=== PATIENT | female | born 1950 | race Two or more races ===

== ENCOUNTER 2017-01-21 11:46 | Inpatient (IN) | payer MEDICARE ==
[~2017-01-21] VITALS: Ht 165.1 cm; Wt 60.3 kg
[2017-01-21 13:24] VITALS: BP 113/85
--- NOTE | 2017-01-21 13:24 | NUR ---
ADMISSION NOTES/ PATIENT DIRECT ADMIT, BROUGHT BY AMBULANCE 66 Y/OLD FEMALE ON 5150 HOLD, DX OF GD, PSYCHOSIS NOS. ACCORDING ON HOLD PATIENT DELUSIONAL, CONFUSED, TRIED TO ELOPE FROM ER, UNABLE TO CARE SELF, UNABLE TO CONTRACT SAFETY, INCONTINENT OF URINE, INSOMNIA. V/S TAKEN BP-113/85, P-85, R-19, O2-96 ROOM AIR, T-97.8. ON FACE TO FACE ASSESSMENT PATIENT A/O X TIME AND NAME. PATIENT RESPIRATION EVEN, UNLABORED, PATIENT DENIED SI/HI AT THIS TIME. SKIN ASSESSMENT DONE, PICTURE TAKEN, MRSA OF NARES SWAB TAKEN. PT AMBULATORY, BUT INCONTINENT OF URINE. PATIENT BELONGING AND CONTRABAND CHECKED. PATIENTS RIGHT HAND BOOK GIVEN, AND EXPLAINED TO. PATIENT FAMILY AWARE OF. DR CLEMENT, AND DR DOYLE AWARE OF NEW PATIENT, AND NEW MEDICATION. CONTINUED MONITORING.
[2017-01-21] MEDS ORDERED: MAGNESIUM HYDROXIDE 30 ML UDC PO PRN (15:00)
[2017-01-21] MEDS ORDERED: LORAZEPAM 0.5 MG TABLET PO PRN (15:00)
[2017-01-21] MEDS ORDERED: MAG HYDROX/AL HYDROX/SIMETH 30 ML UDC PO PRN (15:00)
[2017-01-21] MEDS ORDERED: ACETAMINOPHEN 325 MG TABLET PO PRN (15:00)
[2017-01-21] MEDS ORDERED: CEPH500T PO (15:32)
[2017-01-21] MEDS ORDERED: DULO60CA45 PO (15:32)
[2017-01-21] MEDS ORDERED: HYDR-3976 PO (15:32)
[2017-01-21] MEDS ORDERED: CARV6.252 PO (15:32)
[2017-01-21] MEDS ORDERED: METF500T4 PO (15:32)
[2017-01-21] MEDS ORDERED: CLOT15CR63 TP (15:32)
[2017-01-21] MEDS ORDERED: LOSA25TA13 PO (15:32)
--- NOTE | 2017-01-21 16:07 | NUR ---
GPS/RN CALLED [facility]/DR DOYLE FOR ADMITTING ORDERS.
[2017-01-21 16:15] VITALS: BP 103/66
[2017-01-21] MEDS ORDERED: Z GUARD REMEDY 2 OZ OINT TP PRN (17:30)
[2017-01-21 20:36] VITALS: BP 132/66
--- NOTE | 2017-01-22 00:54 | NUR ---
Pt has been confused, fragmented, hyperverbal at times, mentally preoccupied, guarded, & paranoid.
[2017-01-22 07:01] LABS: EOSINOPHILS # (AUTO) 0.1 /CMM (0.0-0.7); EOSINOPHILS % (AUTO) 1.2 % (0.0-6.0); HEMATOCRIT 35 % (33-45); HEMOGLOBIN 11.9 g/dL (11.5-14.8); LYMPHOCYTES # (AUTO) 2.4 /CMM (0.8-4.8); LYMPHOCYTES % (AUTO) 52.9 % (20.0-44.0); MEAN CORPUSCULAR HEMOGLOBIN 29 PG (26.0-33.0); MEAN CORPUSCULAR HGB CONC 34 g/dl (31.0-36.0); MEAN CORPUSCULAR VOLUME 87 fL (82-100); MONOCYTES # (AUTO) 0.5 /CMM (0.1-1.30); MONOCYTES % (AUTO) 12.1 % (2.0-12.0); NEUTROPHILS # (AUTO) 1.5 /CMM (1.8-8.9); NEUTROPHILS % (AUTO) 32.8 % (43.0-81.0); PLATELET COUNT (AUTO) 271 /CMM (150-450); RDW COEFFICIENT OF VARIATION 13.9 (11.5-15.0); RED BLOOD CELL COUNT(AUTO) 4.08 MIL/uL (4.0-5.2); WHITE BLOOD COUNT (AUTO) 4.5 K/uL (4.3-11.0)
[2017-01-22 07:19] LABS: ALBUMIN 3.1 g/dL (3.4-5.0); BILIRUBIN,TOTAL 0.5 mg/dL (0.2-1.0); CALCIUM, SERUM 8.5 mg/dL (8.5-10.1); CREATININE 0.8 mg/dL (0.6-1.3); POTASSIUM 3.9 mmol/L (3.5-5.1); TOTAL PROTEIN, SERUM 6.7 g/dL (6.4-8.2)
[2017-01-22 07:48] LABS: THYROID STIMULATING HORMONE 1.392 uIU/mL (0.358-3.74)
[2017-01-22 08:00] VITALS: BP 131/71
[2017-01-22] MEDS: METFORMIN 500 MG TABLET PO SCH (08:43)
[2017-01-22] MEDS: CARVEDILOL 6.25 MG TABLET PO SCH ×2 (08:43→16:52)
[2017-01-22] MEDS: LOSARTAN POTASSIUM 25 MG TABLET PO SCH (08:44)
[2017-01-22] MEDS: CLOTRIMAZOLE 1% 15 GM TUBE TP SCH ×2 (08:45→17:05)
[2017-01-22] MEDS: HYDROCODONE/APAP 5/325MG 1 EACH TABLET PO PRN (08:56)
--- NOTE | 2017-01-22 08:56 | NUR ---
[id number]: GAVE NORCO 5/325 MG PO DUE TO GENERALIZED PAIN 03/15 UPON PT REQUEST AND WILL CONTINUE TO MONITOR FOR EFFECTIVENESS OF MEDICATION
[2017-01-22 12:03] LABS: CHOLESTEROL 176 mg/dL (<200); HDL CHOLESTEROL 28 mg/dL (40-60); LDL 119 mg/dL (0-99); TRIGLYCERIDES 80 mg/dL (30-150)
--- NOTE | 2017-01-22 12:46 | NUR ---
[id number]: NOTIFIED DR. DOYLE ABOUT LAB VALUES ON 01/22/17: NEUT %= 32.8, LYMPH %= 52.9, MONO %= 12.1, NEUT#= 1.5, CHLORIDE= 109, ALBUMIN 3.1. NO NEW ORDERS GIVEN AT THIS TIME.
--- NOTE | 2017-01-22 13:24 | NUR ---
[id number]: NOTIFIED DR. DOYLE ABOUT PT HAVING KEFLEX 500 MG PO 4X DAILY FOR 7 DAYS PRIOR COMING TO THE HOSPITAL. ALSO DR. CLEMENT ORDERED URINALYSIS AND URINE CULTURE. PENDING RETURN PHONE CALL.
[2017-01-22 15:31] LABS: CREATININE 0.8 mg/dL (0.6-1.3)
[2017-01-22 16:00] VITALS: BP 96/77
[2017-01-22] MEDS: CEPHALEXIN MONOHYDRATE 250 MG CAPSULE PO SCH ×2 (16:52→20:52)
[2017-01-22] MEDS ORDERED: QUETIAPINE FUMARATE 25 MG TABLET PO PRN (17:00)
--- NOTE | 2017-01-22 20:57 | NUR ---
GPS/RN NOTE: PATIENT STATED THAT SHE IS READY FOR HER NIGHT MEDS. KEFLEX 500 MG PO AND SEROQUEL 12.5 MG GIVEN.
[2017-01-22] MEDS ORDERED: QUETIAPINE FUMARATE 25 MG TABLET PO SCH (22:00)
[2017-01-22 22:10] VITALS: BP 108/61
[2017-01-23 07:48] LABS: APPEARANCE,URINE CLEAR (CLEAR); BILIRUBIN,URINE NEGATIVE (NEGATIVE); BLOOD, URINE NEGATIVE Ery/uL (NEGATIVE); COLOR,URINE YELLOW (YELLOW); KETONES,URINE NEGATIVE (NEGATIVE); LEUKOCYTE ESTERASE ,URINE NEGATIVE (NEGATIVE); NITRITE, URINE NEGATIVE (NEGATIVE); PH,URINE 6.5 (5.0-8.0); PROTEIN,URINE NEGATIVE (NEGATIVE); UGLUCOSE NEGATIVE (NEGATIVE); UROBILINOGEN,URINE 0.2 EU/dL (0.2)
[2017-01-23 08:00] VITALS: BP 121/90
[2017-01-23] MEDS: LOSARTAN POTASSIUM 25 MG TABLET PO SCH (08:27)
[2017-01-23] MEDS: METFORMIN 500 MG TABLET PO SCH (08:27)
[2017-01-23] MEDS: CARVEDILOL 6.25 MG TABLET PO SCH ×2 (08:27→16:38)
[2017-01-23] MEDS: CLOTRIMAZOLE 1% 15 GM TUBE TP SCH ×2 (08:31→16:39)
[2017-01-23] MEDS: CEPHALEXIN MONOHYDRATE 250 MG CAPSULE PO SCH ×4 (08:47→21:32)
--- NOTE | 2017-01-23 11:32 | NUR ---
Initial Discharge Plan: Patient stated that she is homeless and stays somewhere in [place], [place]. Patient will need placement. health workers spoke to patient's son Orion Astorga ([phone]) and stated that unfortunately he is unable to do much as he lives in [place]. health workers attempted to contact her other son Aren ([phone]) however, he was unavailable, aids social worker left a voicemail with her contact information. health workers will help form a safe and proper discharge. health workers will also provide patient with substance abuse referrals upon discharge.
--- NOTE | 2017-01-23 14:52 | NUR ---
ash worker spoke to patient's son Aren Astorga ([phone]) who stated that patient has been homeless for over a year. Aren stated that his brother Orion Astorga ([phone]) would be willing to take her to live with him in [place]. Aren also stated that she could live in his apartment while he is gone on vacation. Aren stated that patient can be uncooperative and may refuse placement. social science teacher will follow-up with patient regarding placement.
[2017-01-23 16:00] VITALS: BP 105/68
[2017-01-23] MEDS: SERTRALINE HCL 25 MG TABLET PO SCH (17:24)
[2017-01-23 21:02] VITALS: BP 110/73
[2017-01-23] MEDS: QUETIAPINE FUMARATE 25 MG TABLET PO SCH (21:32)
[2017-01-24 07:59] VITALS: BP 122/64
[2017-01-24] MEDS: LOSARTAN POTASSIUM 25 MG TABLET PO SCH (08:13)
[2017-01-24] MEDS: SERTRALINE HCL 25 MG TABLET PO SCH (08:13)
[2017-01-24] MEDS: CARVEDILOL 6.25 MG TABLET PO SCH ×2 (08:13→16:55)
[2017-01-24] MEDS: METFORMIN 500 MG TABLET PO SCH (08:13)
[2017-01-24] MEDS: CLOTRIMAZOLE 1% 15 GM TUBE TP SCH ×2 (08:15→16:57)
[2017-01-24] MEDS: CEPHALEXIN MONOHYDRATE 250 MG CAPSULE PO SCH ×4 (08:29→20:41)
--- NOTE | 2017-01-24 10:50 | NUR ---
[id number]: NOTIFIED DR. MARINELLI AND DR. CLEMENT ABOUT CT OF THE HEAD RESULTS. NO NEW ORDERS GIVEN AT THIS TIME. DR. CLEMENT NOTIFIED DR. CONNELLY ABOUT CONSULTATION FOR PT.
--- NOTE | 2017-01-24 11:06 | NUR ---
[id number]: DR. MARINELLI ORDERED A PHYSICIAN CONSULT FOR DR. SMALLWOOD TO ASSESS LEFT HAND POSSIBLE ESCHAR.
--- NOTE | 2017-01-24 11:19 | NUR ---
WOUND CARE CONSULT: PT PRESENTS WITH LEFT HAND ESCHAR, PRESENT ON ADMISSION. PT STATES WAS A DOG BITE. NO DRAINAGE NOTED. PEELING SKIN NOTED AROUND ESCHAR. RECOMMEND SURGICAL CONSULT. RECOMMENDATIONS MADE FOR RASH CARE (GROIN AND BUTTOCKS RASH). DISCUSSED WITH NURSING STAFF. PT IS INDEPENDENT WITH MOBILITY, AMBULATORY AND CONTINENT. WILL SEE PRN. BETANCOURT IN AGREEMENT WITH PLAN OF CARE. Addendum: 01/24/17 at 1120 by TIFFANIE BREWER WNDNU Amended: Links added.
--- NOTE | 2017-01-24 12:07 | NUR ---
aboriginal education worker coordinator faxed initial review packet to [facility] ( / ) [address] [place] [address]. aboriginal education worker coordinator will follow-up.
--- NOTE | 2017-01-24 14:17 | NUR ---
[id number]: TODD VILLA ORDERED TRIPLE ANTIBIOTIC FOR LEFT FINGER AND LEAVE OPEN TO AIR. WILL CONTINUE TO MONITOR FOR ANY SIGNS AND SYMPTOMS OF INFECTION.
--- NOTE | 2017-01-24 14:47 | NUR ---
Patient was accepted to [facility] ( / ) [address] [place] [address]. food production worker will follow-up
[2017-01-24 16:06] VITALS: BP 101/65
[2017-01-24] MEDS: NEOMY SULF/BACITRAC ZN/POLY 15 GM TUBE TP SCH (16:57)
[2017-01-24 20:01] VITALS: BP 126/77
[2017-01-24] MEDS: QUETIAPINE FUMARATE 25 MG TABLET PO SCH (21:46)
[2017-01-25 08:00] VITALS: BP 122/70
[2017-01-25] MEDS: LOSARTAN POTASSIUM 25 MG TABLET PO SCH (08:19)
[2017-01-25] MEDS: METFORMIN 500 MG TABLET PO SCH (08:19)
[2017-01-25] MEDS: CARVEDILOL 6.25 MG TABLET PO SCH ×2 (08:20→16:29)
[2017-01-25] MEDS: SERTRALINE HCL 25 MG TABLET PO SCH (08:20)
[2017-01-25] MEDS: NEOMY SULF/BACITRAC ZN/POLY 15 GM TUBE TP SCH ×2 (08:23→16:38)
[2017-01-25] MEDS: CLOTRIMAZOLE 1% 15 GM TUBE TP SCH ×2 (08:23→16:38)
[2017-01-25 16:00] VITALS: BP 132/74
--- NOTE | 2017-01-25 19:00 | NUR ---
GPS RN INITIAL NOTE PT RECEIVED IN BED, NO S/S OF RESPIRATORY DISTRESS OR SOB. SAFE ENVIRONMENT PROVIDED FREE OF CLUTTERS. .BED IN LOCKED, LOW POSITION. CALL LIGHT WITHIN EASY REACH. WILL CONTINUE TO MONITOR.
[2017-01-25 20:00] VITALS: BP 111/70
[2017-01-25] MEDS: AMOX/CLAVULANATE 875 MG TABLET PO SCH (21:38)
[2017-01-25] MEDS: QUETIAPINE FUMARATE 25 MG TABLET PO SCH (21:39)
--- NOTE | 2017-01-26 06:22 | NUR ---
GPS RN CLOSING NOTES PATIENT COMFORTABLY ASLEEP AND EASILY AWAKEN, HEAD OF BED ELEVATED FOR BETTER LUNG EXPANSION TOLERATING ROOM AIR 02 SAT AT 97% ON ATB WITH NO A/R NOTED. NOT APPARENT DISTRESS. AFEBRILE, ALL NURSING CARE NEEDS PROVIDED AND RENDERED, NEEDS ATTENDED AND ANTICIPATED, KEPT CLEAN AND DRY AND COMFORTABLE, GOOD SKIN ARE PROVIDED. FREQUENT VISUAL CHECK DONE FOR SAFETY PER GPS PROTOCOL. SAFE HAZARD FREE ENVIRONMENT PROVIDED. CALL LIGHT WITHIN EASY TO REACH, ON LOW BED AT ALL TIMES TO ENSURE SAFETY, WILL ENDORSE TO THE NEXT SHIFT CONTINUE PLAN OF CARE.
[2017-01-26] MEDS: SERTRALINE HCL 25 MG TABLET PO SCH (09:22)
[2017-01-26] MEDS: LOSARTAN POTASSIUM 25 MG TABLET PO SCH (09:22)
[2017-01-26] MEDS: CARVEDILOL 6.25 MG TABLET PO SCH ×2 (09:22→16:19)
[2017-01-26] MEDS: NEOMY SULF/BACITRAC ZN/POLY 15 GM TUBE TP SCH ×2 (09:23→16:20)
[2017-01-26] MEDS: CLOTRIMAZOLE 1% 15 GM TUBE TP SCH ×2 (09:23→16:19)
[2017-01-26] MEDS: METFORMIN 500 MG TABLET PO SCH (09:23)
[2017-01-26] MEDS: AMOX/CLAVULANATE 875 MG TABLET PO SCH ×2 (10:05→21:29)
[2017-01-26 17:07] VITALS: BP 140/71
[2017-01-26 20:00] VITALS: BP 118/68
[2017-01-26] MEDS: QUETIAPINE FUMARATE 25 MG TABLET PO SCH (21:29)
[2017-01-27 08:00] VITALS: BP 124/76
[2017-01-27] MEDS: METFORMIN 500 MG TABLET PO SCH (08:46)
[2017-01-27] MEDS: LOSARTAN POTASSIUM 25 MG TABLET PO SCH (08:46)
[2017-01-27] MEDS: CARVEDILOL 6.25 MG TABLET PO SCH ×2 (08:46→17:00)
[2017-01-27] MEDS: SERTRALINE HCL 25 MG TABLET PO SCH (08:46)
[2017-01-27] MEDS: AMOX/CLAVULANATE 875 MG TABLET PO SCH ×2 (08:47→21:26)
[2017-01-27] MEDS: CLOTRIMAZOLE 1% 15 GM TUBE TP SCH ×2 (08:47→17:25)
[2017-01-27] MEDS: NEOMY SULF/BACITRAC ZN/POLY 15 GM TUBE TP SCH ×2 (08:47→17:25)
[2017-01-27 16:17] VITALS: BP_SYST 103; BP_SYST 138; BP_DIAS 66; BP_DIAS 79
[2017-01-27 20:00] VITALS: BP 112/70
[2017-01-27] MEDS: QUETIAPINE FUMARATE 25 MG TABLET PO SCH (21:26)
[2017-01-28 08:55] VITALS: BP 100/88
[2017-01-28] MEDS: LOSARTAN POTASSIUM 25 MG TABLET PO SCH (08:56)
[2017-01-28] MEDS: CARVEDILOL 6.25 MG TABLET PO SCH ×2 (08:56→17:19)
[2017-01-28] MEDS: SERTRALINE HCL 25 MG TABLET PO SCH (09:07)
[2017-01-28] MEDS: NEOMY SULF/BACITRAC ZN/POLY 15 GM TUBE TP SCH ×2 (09:07→17:19)
[2017-01-28] MEDS: METFORMIN 500 MG TABLET PO SCH (09:07)
[2017-01-28] MEDS: CLOTRIMAZOLE 1% 15 GM TUBE TP SCH ×2 (09:07→17:19)
[2017-01-28] MEDS: AMOX/CLAVULANATE 875 MG TABLET PO SCH ×2 (09:08→21:41)
[2017-01-28 16:02] VITALS: BP 129/83
[2017-01-28 21:24] VITALS: BP 122/76
[2017-01-28] MEDS: QUETIAPINE FUMARATE 25 MG TABLET PO SCH (21:41)
[2017-01-28] MEDS: HYDROCODONE/APAP 5/325MG 1 EACH TABLET PO PRN (21:45)
--- NOTE | 2017-01-29 06:26 | NUR ---
GPS RN NOTE: PATIENT REFUSED BODY CHECK AND PICTURES X 3 ATTEMPTS, EXPLAINED THAT THE PATIENT IS GOING TO BE DISCHARGE AND WE NEED A BODY CHECK AND PICTURE, PATIENT STILL REFUSED WITNESSED BY THE CHARGE NURSE.WILL CONTINUE TO MONITOR
[2017-01-29 08:00] VITALS: BP 126/69
[2017-01-29] MEDS: AMOX/CLAVULANATE 875 MG TABLET PO SCH (08:51)
[2017-01-29] MEDS: SERTRALINE HCL 25 MG TABLET PO SCH (08:52)
[2017-01-29] MEDS: LOSARTAN POTASSIUM 25 MG TABLET PO SCH (08:52)
[2017-01-29] MEDS: METFORMIN 500 MG TABLET PO SCH (08:52)
[2017-01-29 08:53] VITALS: BP 126/69
[2017-01-29] MEDS: CLOTRIMAZOLE 1% 15 GM TUBE TP SCH (08:53)
[2017-01-29] MEDS: NEOMY SULF/BACITRAC ZN/POLY 15 GM TUBE TP SCH (08:53)
[2017-01-29] MEDS: CARVEDILOL 6.25 MG TABLET PO SCH (08:53)
--- NOTE | 2017-01-29 15:15 | NUR ---
Discharge Note: Patient was discharged to [facility] ( / ) [address] [place] [address]. Via med response. Patient's son Aren ([phone]) was notified. Patient and patient's son was agreeable with the discharge plan. Patient's mood and affect were calm and cooperative upon discharge. Patient denied suicidal and homicidal ideations. nursery worker referred patient to [facility] [address] [facility]. [address] [place] [address] ([phone]) with an intake appointment Thursday February 02, 2017 at 2:00pm. Patient agreed to follow-up with he psychiatrist Dr. ben Núñez is her psychiatrist . nursery worker also provided patient with referral to [facility] ([phone]) [address] [place] [facility] [address]. Facilitated info to IDT team who are in agreement with discharge arrangement. The multidisciplinary exitcare form was done, printed, signed, and given to the patient.
--- NOTE | 2017-01-29 16:11 | NUR ---
pt had orders to transfer to [facility], pt is stable still having issues manipulating staff and not following directions, report was called to [place] RN, ambulance here to pick her up, no distress.
== END 2017-01-29 15:25 | DRG 885 ==
LOC: GPS 13:12
PROVIDERS: ADMIT Psychiatry & Neurology Psychosomatic Medicine; ATTEND Internal Medicine
DX: F32.3 Major depressive disorder, single episode, severe with psychotic features (principal); F05 Delirium due to known physiological condition; N39.0 Urinary tract infection, site not specified; F29 Unspecified psychosis not due to a substance or known physiological condition; Z73.6 Limitation of activities due to disability; E78.5 Hyperlipidemia, unspecified; E11.9 Type 2 diabetes mellitus without complications; F03.90 Unspecified dementia, unspecified severity, without behavioral disturbance, psychotic disturbance, mood disturbance, and anxiety; F32.9 Major depressive disorder, single episode, unspecified; I10 Essential (primary) hypertension; K21.9 Gastro-esophageal reflux disease without esophagitis; L30.4 Erythema intertrigo; L98.8 Other specified disorders of the skin and subcutaneous tissue; M79.7 Fibromyalgia; S60.922A Unspecified superficial injury of left hand, initial encounter; W54.0XXA Bitten by dog, initial encounter; Y93.9 Activity, unspecified; Y92.9 Unspecified place or not applicable; Y99.9 Unspecified external cause status
CPT/HCPCS: 36415; 70450-TC; 80053-TC; 80061-TC; 81000-TC; 82565-TC; 82746; 83540-TC; 84443-TC; 85025-TC; 87081-TC; 87086-TC